=== PATIENT | male | born 1995 | race African-American/Black ===

== ENCOUNTER 2017-06-09 09:19 | Inpatient (IN) | payer BC ==
[~2017-06-09] VITALS: Ht 170.2 cm; Wt 70.3 kg
--- NOTE | ~2017-06-09 | DS ---
Unit #: [id number] #: [id number] Patient: AYLIN SHAH I [id number] [facility] [address] [place] [address] [id number] MR#: [id number] NAME: AYLIN SHAH I. ROOM: [facility] Age: 21 Sex: M Admission Date: 06/09/2017 : 1995 Discharge Date: 06/11/2017 Attending Physician: Fred Schilling M.D. Primary Care Physician: Generic Doctor Not In System DISCHARGE SUMMARY REASON FOR ADMISSION The patient is a 21-year-old white male, admitted after he had voiced suicidal ideation at his workplace. HOSPITAL COURSE The patient was admitted to the [facility] unit and placed on suicide precautions. He was seen by this physician on the morning of 06/10/2017. At that time, he requested discharge from the hospital stating that his suicidal threats had been overstated. The patient reluctantly agreed to remain for one further day of observation. He did not wish to start any antidepressant medication. At that time, the patient can participate active within therapeutic milieu and was bright, pleasant, and future oriented. 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 By 06/11/2017, the patient continued in bright spirits. He had reconciled with his mother and was denying suicidal ideation. Discharge was ordered. FINAL DIAGNOSES Dysthymic disorder, adjustment disorder with depressed mood. DISPOSITION ON DISCHARGE The patient is discharged on no psychotropic medications. FOLLOWUP Followup will take place through the auspices of community mental health resources. PROGNOSIS Considered fair. Dictated by... Fred Schilling M.D. CALIXTO/argentina TD: 06/12/2017 07:25 JOB #: [id number] Unit #: [id number] #: [id number] Patient: AYLIN SHAH I DISCHARGE SUMMARY Page 1 of 1 X Fred Schilling MD DISCHARGE SUMMARY
--- NOTE | ~2017-06-09 | PA ---
Unit #: [id number] #: [id number] Patient: AYLIN SHAH I [id number] [facility] [address] [place] [address] [id number] MR#: [id number] NAME: AYLIN SHAH I. ROOM: P264 Age: 21 Sex: M Admission Date: 06/09/2017 : 1995 Date of Assessment: 06/10/2017 Attending Physician: Fred Schilling M.D. Admitting Physician: Fred Schilling M.D. Primary Care Physician: Generic Doctor Not In System PSYCHIATRIC ASSESSMENT IDENTIFYING INFORMATION The patient is a 21-year-old white male admitted after he reported suicidal ideation at his work place. CHIEF COMPLAINT None given. INFORMANT(S) Patient and chart, reliability fair. HISTORY OF PRESENT ILLNESS The patient is a 21-year-old single white male admitted in transfer from emergency psychiatric services where he had been taken after he had voiced suicidal ideation to a co-worker at [employer] yesterday. The patient reports multiple stressors, mainly financial relationship and educational in nature. The patient reports that he is studying to become a nurse but hopes to withdraw from classes in the near future. This is also the 2-year anniversary of a relationship breakup. The patient has also quarreled with his mother and had been told to leave the domicile they two shared though they have apparently reconciled, and he will be able to return there. The patient states that he has been treated in the past with Paxil and Lexapro but had a poor response to both medications. He does not wish to start medications at this time. He denies recent changes in sleep or appetite. He does admit to frequent use of cannabis. The patient had reported positive suicidal ideation with plan to wreck his automobile or step into traffic but is currently denying suicidal ideation and is pushing hard for discharge. PAST PSYCHIATRIC HISTORY The patient has never been psychiatrically hospitalized. He does have a history of a previous suicide attempt in November of 2015. PAST MEDICAL HISTORY Noncontributory. MEDICATIONS None. ALLERGIES None. FAMILY HISTORY The patient's mother suffered from anxiety. Unit #: [id number] #: [id number] Patient: AYLIN SHAH I SOCIAL HISTORY The patient lives with his mother. He is attending [employer], studying nursing and is employed at [employer]. He reports cannabis use as noted previously. MENTAL STATUS EXAMINATION Examination at this time reveals the patient to be a well-developed well-nourished white male appearing stated age. He is in no apparent physical distress at the time of examination. He is awake, alert, and oriented in all spheres. His mood is mildly dysphoric, her affect is constricted. Speech is generally well-coherent. There are no gross deficits in memory or cognition noted. Intelligence is judged to be in the average range based on fund of knowledge. The patient is cooperative throughout the interview. He is currently denying suicidal or homicidal ideation or psychotic features. Judgment and insight appear to be intact. ASSETS AND LIABILITIES The patient's assets: Motivation for change. Liabilities: Lack of resources. DIAGNOSTIC IMPRESSION 1. Dysthymic disorder. 2. Cannabis use disorder. TREATMENT PLAN The patient remains hospitalized for safety and stabilization at this time. He declines initiation of antidepressant medication after discussion of the risks and benefits of initiation of such treatments. The patient will participate in appropriate order of milieu activities, and discharge should take place as early as tomorrow should the patient continue to maintain lack of suicidal ideation and should this physician be able to speak with family members regarding collateral history. ESTIMATED LENGTH OF STAY 2 to 3 days. Dictated by... Fred Schilling M.D. CALIXTO/jonathan TD: 06/10/2017 13:08 JOB #: [id number] PSYCHIATRIC ASSESSMENT Page 1 of 1 X Fred Schilling MD X PSYCHIATRIC ASSESSMENT
--- NOTE | ~2017-06-09 | HP ---
Unit #: [id number] #: [id number] Patient: ODELL SHAH I [id number] [place] [address] [id number] MR#: [id number] NAME: ODELL SHAH I. ROOM: P261 Age: 21 Sex: M Admission Date: 06/09/2017 : 1995 Attending Physician: Fred Schilling M.D. Admitting Physician: Fred Schilling M.D. Primary Care Physician: Generic Doctor Not In System HISTORY AND PHYSICAL HISTORY OF PRESENT ILLNESS Odell is a 21 year old admitted to [address] [place] [address] with depression and verbalizing wanting to hurt himself. PAST MEDICAL HISTORY Nothing significant. PAST SURGICAL HISTORY 1. Oral. 2. T and A. ALLERGIES No known drug allergies. SOCIAL HISTORY He denies cigarettes, alcohol and illicit drug use. FAMILY HISTORY Medically noncontributory. REVIEW OF SYSTEMS CONSTITUTIONAL: No fever or chills. HEENT: Denies any sore throat, ear pain or runny nose. CARDIOVASCULAR: Denies chest pain, irregular heart rhythm or palpitations. CHEST: Denies shortness of breath or cough. No hemoptysis. GASTROINTESTINAL: Denies nausea, vomiting, diarrhea or chronic constipation. ENDOCRINE: Denies history of increased thirst or urination. No recent significant weight loss or gain. GENITOURINARY: Denies dysuria, frequency, or hematuria. SKIN: Denies any rashes. HEMATOLOGIC: Denies history of increased bleeding or bruising. MUSCULOSKELETAL: Denies any hot, swollen joints. No generalized muscle pain. NEUROLOGIC: Denies problems with vision or speech. No frequent, severe headaches. No numbness, tingling or weakness in any extremities. Denies loss of bladder or bowel control. CURRENT MEDICATIONS 1. Milk of Magnesia p.r.n. 2. Maalox p.r.n. 3. Tylenol p.r.n. Unit #: [id number] #: [id number] Patient: ODELL SHAH I PHYSICAL EXAMINATION GENERAL: Alert, well-nourished, in no apparent distress. VITAL SIGNS: Blood pressure 132/72, heart rate 80, respirations 16, temperature 98.6. WEIGHT: 155. HEIGHT: 5 feet 7 inches. SKIN: Warm and dry without rash or lesion. HEENT: Normocephalic. TMs not viewed. Oral and nasal passages clear. Conjunctivae clear. PERRLA. EOMs intact. NECK: Supple without lymphadenopathy or thyromegaly. HEART: Regular rate and rhythm without murmur. LUNGS: Clear. ABDOMEN: Soft, nontender. : Not done. EXTREMITIES: No evidence of cyanosis, clubbing or edema. Moves all without focal deficit. NEUROLOGICAL: Grossly within normal limits. Cranial Nerves: II: Visual montaño are intact. III, IV AND : Extraocular movements are intact. Pupils are equal, round and reactive to light. V: Facial sensation is grossly normal. VII: Facial movements and expression are normal. VIII: Auditory acuity grossly intact. IX, X: Uvula is midline. Phonation is normal. XI: Patient shrugs shoulders and turns head normally. XII: Tongue protrudes in the midline. Sensory and Motor Function: Sensory and motor sensation is grossly normal. Motor: moves all extremities well. Coordination: Gait is normal. Deep Tendon Reflexes: Intact. IMPRESSION Psychiatric admission. RECOMMENDATIONS PSYCHIATRIC: Per psychiatrist. MEDICAL: See no contraindication to participate in facility's activities. MEDICAL PROGNOSIS Good. MEDICAL CONDITION Stable. Dictated by... Vera Torres PKatjaAKatja-Magaly. for Bridger Oliveros/ita TD: 06/09/2017 20:12 JOB #: [id number] Unit #: [id number] #: [id number] Patient: ODELL SHAH I HISTORY AND PHYSICAL Page 1 of 1 X Vera Torres X HISTORY AND PHYSICAL
[2017-06-10 09:57] LABS: URINE APPEARANCE TURBID; URINE BILIRUBIN NEG (NEG); URINE BLOOD NEG (NEG); URINE COLOR YELLOW; URINE GLUCOSE NEG (NEG); URINE KETONE NEG (NEG); URINE LEUKOCYTE ESTERASE NEG (NEG); URINE NITRATE NEG (NEG); URINE PH 5.5 (5-8); URINE PROTEIN NEG (NEG)
== END 2017-06-11 16:35 | disposition home or self-care (01) | DRG 881 ==
LOC: P2L 12:45
PROVIDERS: Specialist
DX: F34.1 Dysthymic disorder (principal); R45.851 Suicidal ideations; F12.10 Cannabis abuse, uncomplicated; F43.21 Adjustment disorder with depressed mood
CPT/HCPCS: 81003